=== PATIENT | female | born 1940 | race Caucasian/White ===

== ENCOUNTER → 2019-09-21 | Outpatient (CLI) | payer MEDICARE, OTHER ==
[~2019-09-21] MED LIST: ALDACTONE25 MG PO; ALLEGRA ALLERG180 MG PO; COREG6.25 MG PO; DYMISTA NASAL S23 GM NS; FLONASE 0.05%50 MCG NASAL; IBUPROFEN 200200 M1 PO; MUCINEX TA600 MG/TA2 PO; NASONEX17 GM NASAL; OMEPRAZOLE 20 M20 M1 PO; PRAVACHOL 20 MG20 M1 PO; PULMICORT FLE180 MCG IH; VITAMIN D3400 UNIT PO; XOPENEX HF1 UDINHALE IH
[2019-09-21 11:22] LABS: ALBUMIN 3.4 g/dL (3.4-5.0); DIRECT BILIRUBIN 0.1 mg/dL (<0.1-0.3); TOTAL BILIRUBIN 0.4 mg/dL (<0.1-1.0); TOTAL PROTEIN 6.6 g/dL (6.4-8.2)
== END ==
LOC: M.RAD 10:48
PROVIDERS: ATTEND Internal Medicine Cardiovascular Disease
DX: Z79.899 Other long term (current) drug therapy (principal)

== ENCOUNTER → 2020-11-09 | Outpatient (CLI) | payer MEDICARE, OTHER ==
[~2020-11-09] VITALS: Ht 152.4 cm; Wt 40.8 kg
[~2020-11-09] MED LIST changes: +AZELASTINE205.5 MCG/ NARES; +ELIQUIS5 MG PO; +ENTRESTO 49 MG1 EACH PO; +PACERONE100 MG PO
[2020-11-09 09:36] VITALS: BP 106/47
[2020-11-09 09:50] LABS: HEMATOCRIT 38.5 % (37.0-47.0); HEMOGLOBIN 12.8 gm/dL (12.0-15.0); MCH 28.4 pg (26.0-34.0); MCHC 33.2 g/dL (28.0-37.0); MCV 85.7 fL (80.0-100.0); RBC 4.49 mil/uL (4.20-5.00); RDW-CV 14.9 % (10.5-14.5); WBC 8.8 thou/uL (4.0-11.0)
[2020-11-09 09:57] LABS: ANION GAP 6 mmol/L (7-16); BUN 19 mg/dL (7-18); CALCIUM 8.8 mg/dL (8.5-10.1); CHLORIDE 106 mmol/L (98-107); CO2 29 mmol/L (21-32); CREATININE 0.9 mg/dL (0.6-1.3); GLUCOSE 91 mg/dL (70-99); POTASSIUM 4.1 mmol/L (3.5-5.1); SODIUM 141 mmol/L (136-145)
[2020-11-09 10:01] LABS: ALBUMIN 3.7 g/dL (3.4-5.0); ALKALINE PHOSPHATASE 55 U/L (46-116); CHOLESTEROL 170 mg/dL (<200); HDL CHOLESTEROL 67 mg/dL (>40); LDL CHOLESTEROL 93 mg/dL (<100); SERUM ASSESSMENT Clear; SGOT 28 U/L (15-37); SGPT 27 U/L (30-65); TC:HDL 2.5 Ratio (Not establshd); TOTAL BILIRUBIN 0.4 mg/dL (<0.1-1.0); TOTAL PROTEIN 6.2 g/dL (6.4-8.2); TRIGLYCERIDE 53 mg/dL (<150); VLDL 11 mg/dL (<40)
[2020-11-09 10:50] LABS: APTT 24.6 Seconds (25.0-31.3); PROTIME 10.3 Seconds (9.20-11.50)
[2020-11-09 12:36] VITALS: BP 127/67
[2020-11-09 12:50] VITALS: BP 113/56
--- NOTE | 2020-11-09 13:01 | EKG ---
[place] [address] ELECTROCARDIOGRAM REPORT Name: ARTURO KLEIN Room: [facility]#: [id number] Admission: 11/09/20 Attend Phys: Cj Hernandez, Discharge: Date of : 40 Date of Service: 11/09/20 1006 Report #: [id number] THIS REPORT FOR: //name// [facility] Test Date: 2020-11-09 Test Time: 10:06:03 Pat Name: ARTURO GARCIAES Department: Room: Gender: Basting Marker: [facility] : 1940 Requested By: Cj Hernandez Order Number: [id number] Juan MD: Tip Gonzalez Measurements Intervals [place] Rate: 60 P: 77 CO: 152 QRS: 210 QRSD: 144 T: 51 QT: 517 QTc: 517 Interpretive Statements Atrial-ventricular dual-paced rhythm No further analysis attempted due to paced rhythm No previous ECG available for comparison Electronically Signed On 11-09-2020 13:01:28 CDT by Tip Gonzalez [email or web address] <ELECTRONICALLY SIGNED> By: Tip Gonzalez MD, [facility] 11/09/20 1301 1006 1006 Tip Gonzalez MD, [facility] /EPI
[2020-11-09 13:03] VITALS: BP 116/57
--- NOTE | 2020-11-09 17:14 | CARD ---
[address] [address] CARDIAC CATH REPORT Name: ARTURO KLEIN Room: [facility]#: [id number] Admission: 11/09/20 Attend Phys: Cj Hernandez MD Discharge: Date of : 40 Report #: [id number] THIS REPORT FOR: cc: Physician not on staff Physician not on staff Cj Hernandez MD [facility] ~ APPROVED REPORT Study performed: 11/09/2020 10:55:19 Patient Details Patient Status: Out-Patient Room #: The patient is a 80 year-old female Event Personnel Cj Hernandez It Software Engineer, Milagro Morocho RN Monitor, Keny Schroeder ScrJerrod rodriguez Adam RTR Monitor, Milagro Morocho RN metal cleaner Performed Left Heart Cath w/or w/o Coronaries [id number] [facility] Hemostasis w/ Mynx Admission/Lab Medications/Medications given during procedure Midazolam (Versed) IV 1 mg, Fentanyl IV 25 mcg, Lidocaine Subcut 10 ml, Nitroglycerin IC 100 mcg Procedure Narrative The patient was brought electively to the Cardiac Catheterization Laboratory and was prepped and draped in a sterile manner. The right femoral was infiltrated with 2% Lidocaine subcutaneous anesthesia. IV conscious sedation was used throughout procedure with appropriate monitoring and was performed in the presence of a registered nurse who was an independent trained observer other than the physician performing the procedure. A 6Fr [place] sheath was inserted into the right femoral artery. Coronary angiography was performed using coronary diagnostic catheters. The right coronary system was accessed and visualized with a Diagnostic JR4 6Fr catheter. The left coronary system was accessed and visualized with a Diagnostic JL4 6Fr catheter. The left ventricle was accessed and visualized with a Diagnostic Pigtail 6Fr catheter. Left ventricular/Aortic Valve gradient assessed via catheter pullback. Left ventriculogram was performed in CZECH projection. Pre-dem[place] [address] CARDIAC CATH REPORT Name: ARTURO KLEIN Room: [facility]#: [id number] Admission: 11/09/20 Attend Phys: Cj Hernandez MD Discharge: Date of : 40 Report #: [id number] performed . Closure device was deployed with a 6 Fr Mynx. The patient tolerated the procedure well and there were no complications associated with the procedure. There was no hematoma. Intraoperative Conscious Sedation Sedation start time: 1152 Case end Time: 1208 Fentanyl 25 mcg Versed 1 mg Fluoro Time: 2.4 minutes Dose: DAP 93722 cGycm2 218.01 mGy Contrast Type and Amount: Omnipaque 100 ml Coronary Angiography The patient's coronary anatomy is right dominant. Diagnostic Cath Left Main The left main coronary artery is normal and bifurcates into a left anterior descending and circumflex coronary artery. LAD The left anterior descending artery has some mild calcification noted proximally with 20% narrowing proximally. Distally there is a 30% narrowing. Diagonal 1 The first diagonal branch has minimal plaquing without hemodynamically significant stenosis. Diagonal 2 The second diagonal branch has minimal plaquing proximally. Circumflex The circumflex coronary artery appears normal in its proximal mid and distal portion. OM1 A large and branched obtuse marginal branch appears normal. Right Coronary The right coronary artery has mild 10% plaquing proximally. The remainder the vessel is free of significant disease. R PDA The right PDA is normal. RPLV A moderate-sized branch right posterior lateral LV branch is normal. Left Ventriculography Left Ventriculography was not performed. Hemodynamics The aortic pressure is 103/68 mmHg with a mean of 80 mmHg. The left ventricular pressure is 117/9 mmHg with a mean of mmHg. The left ventricular end diastolic pressure is 4 [place] [address] CARDIAC CATH REPORT Name: ARTURO KLEIN Room: [facility]#: [id number] Admission: 11/09/20 Attend Phys: Cj Hernandez MD Discharge: Date of : 40 Report #: [id number] Conclusion 1. Mild nonocclusive coronary artery disease as outlined above. 2. Normal left ventricular end-diastolic pressure. Recommendations 1. Continue medical management and aggressive risk factor modification. <ELECTRONICALLY SIGNED> By: Cj Hernandez MD, [facility] 11/09/201713 13 171[facility] Falls[facility]aira Hernandez MD, [facility] /INF
== END | disposition home or self-care (01) ==
LOC: M.CL 09:17
PROVIDERS: ATTEND Internal Medicine Cardiovascular Disease
DX: I25.10 Atherosclerotic heart disease of native coronary artery without angina pectoris (principal); I11.0 Hypertensive heart disease with heart failure; I50.9 Heart failure, unspecified; E78.00 Pure hypercholesterolemia, unspecified; Z98.890 Other specified postprocedural states; Z79.899 Other long term (current) drug therapy; Z90.710 Acquired absence of both cervix and uterus; Z85.3 Personal history of malignant neoplasm of breast; Z79.01 Long term (current) use of anticoagulants; Z85.828 Personal history of other malignant neoplasm of skin; Z88.2 Allergy status to sulfonamides; Z91.040 Latex allergy status; Z88.0 Allergy status to penicillin; Z91.041 Radiographic dye allergy status; Z20.822 Contact with and (suspected) exposure to COVID-19

== ENCOUNTER 2021-02-26 15:39 | Observation (INO) | payer MEDICARE, OTHER ==
[~2021-02-26] VITALS: Ht 144.8 cm; Wt 40.8 kg
[2021-02-26 15:51] VITALS: BP 124/41
[2021-02-26 16:12] LABS: ABSOLUTE BASOPHILS 0.1 thou/uL (0.0-0.2); ABSOLUTE EOSINOPHILS 0.2 thou/uL (0.0-0.7); ABSOLUTE LYMPHOCYTES 2.5 thou/uL (0.8-5.3); ABSOLUTE MONOCYTES 0.6 thou/uL (0.0-1.2); ABSOLUTE NEUTROPHILS 5.6 thou/uL (1.6-8.1); BASOPHILS 1.1 %; EOSINOPHILS 1.8 %; HEMATOCRIT 39.7 % (37.0-47.0); HEMOGLOBIN 12.9 gm/dL (12.0-15.0); LYMPHOCYTES 27.8 %; MCH 26.5 pg (26.0-34.0); MCHC 32.4 g/dL (28.0-37.0); MCV 81.7 fL (80.0-100.0); MONOCYTES 7.2 %; MPV 8.1 fl. (7.2-11.1); NUCLEATED RBCS 0 /100WBC; PLATELET COUNT* 219 thou/uL (150-400); POLYS 62.1 %; RBC 4.86 mil/uL (4.20-5.00); RDW-CV 15.9 % (10.5-14.5)
[2021-02-26 16:25] LABS: CALCIUM 8.7 mg/dL (8.5-10.1); CREATININE 0.9 mg/dL (0.6-1.3); POTASSIUM 4.3 mmol/L (3.5-5.1)
[2021-02-26 16:42] LABS: ALBUMIN 3.6 g/dL (3.4-5.0); MAGNESIUM 2.1 mg/dL (1.8-2.4); TOTAL BILIRUBIN 0.3 mg/dL (<0.1-1.0); TOTAL PROTEIN 6.6 g/dL (6.4-8.2)
[2021-02-27 02:00] VITALS: BP 106/49
[2021-02-27 06:00] VITALS: BP 108/50
--- NOTE | 2021-02-27 08:39 | CON ---
[address] [address] CONSULTATION Name: LATOYAARTURO Julio Room: [address] M.R.#: [id number] Admission: 02/26/21 Attend Phys: Soo Patrick MD Discharge: Date of : 40 Report #: [id number] THIS REPORT FOR: cc: FAM - Family physician unknown FAM - Family physician unknown Cj Hernandez MD FAC ~ cc: Sabrina Hoff DATE OF CONSULTATION: 02/27/2021 CARDIOLOGY CONSULTATION INDICATION: Chest pain. HISTORY OF PRESENT ILLNESS: The patient is a very pleasant 80-year-old white female who is well known to myself. She has a history of nonischemic cardiomyopathy. EF on her most recent echocardiogram was 40%. 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 Catheterization in October of this year showed moderate nonocclusive disease. The patient reports having several episodes of chest pain that is midsternal in location with radiation to the left jaw. The pain was intense enough last Friday night that she took a nitroglycerin with prompt relief of the discomfort. The patient called the office to report this and was referred to the Emergency Room. In the Emergency Room, the patient is stable and not having any significant chest pain. Cardiac enzymes are unremarkable x 3 sets. NT-proBNP is within normal limits. She is not having any symptoms to suggest acute heart failure. She is without other complaint at this time. Of note, she was witnessed to unexpected at her local pool last week and still has some anxiety over this. PAST MEDICAL HISTORY: 1. Nonischemic cardiomyopathy. 2. Paroxysmal atrial fibrillation, maintaining sinus rhythm, on amiodarone. 3. Chronic amiodarone use. 4. Hypercholesterolemia. 5. Ascending aortic root aneurysm. 6. Chronic systolic congestive heart failure. 7. Left bundle branch block. 8. Status post biventricular ICD placement. HOME MEDICATIONS: Amiodarone 100 mg daily, Astelin nasal spray 1 spray each nostril 2 times daily, carvedilol 6.25 mg b.i.d., Prolia 60 mg injection as directed, Eliquis 5 mg p.o. b.i.d., Entresto 49/51 mg 1 tablet p.o. b.i.d., [place] [address] CONSULTATION Name: LATOYAARTURO [address] [id number] Admission: 02/26/21 Attend Phys: Soo Patrick MD Discharge: Date of : 40 Report #: [id number] fluticasone nasal spray 2 sprays each nostril daily, Nitrostat sublingual p.r.n., omeprazole 20 mg daily, pravastatin 20 mg at bedtime, Pulmicort inhaler daily, spironolactone 25 mg daily, vitamin D3 2000 units daily. SOCIAL HISTORY: The patient is a lifelong nonsmoker. She does not drink alcohol. FAMILY HISTORY: Noncontributory. ALLERGIES: LEVOFLOXACIN, IODINE, SULFA ANTIBIOTICS. REVIEW OF SYSTEMS: A 14-point review of systems positive only for the chest discomfort the patient has been experiencing. Otherwise, unremarkable. PHYSICAL EXAMINATION: VITAL SIGNS: Stable. Blood pressure is 106/62, pulse is 66. GENERAL: This is a thin, pleasant elderly female in no distress. Mood and affect appropriate. HEENT: Extraocular muscles intact. Mucous membranes are moist. NECK: Examination of the neck shows no jugular venous distention. CHEST: Reveals clear lung arreola. CARDIAC: Reveals a regular rhythm. I do not appreciate gallop or murmur. ABDOMEN: Examination of the abdomen reveals normal bowel sounds. The abdomen is soft, nontender. EXTREMITIES: Shows no edema. SKIN: Warm and dry. DIAGNOSTIC DATA: A 12-lead EKG shows AV sequential pacing. LABORATORY DATA: Labs are reviewed. CBC is unremarkable. Electrolytes are within normal limits. BUN 29, creatinine 0.9. High sensitivity troponins are 20, 18, and 19 sequentially. NT-proBNP was 328. Chest x-ray shows no acute cardiopulmonary abnormality. IMPRESSION AND RECOMMENDATIONS: 1. Chest pain with symptoms to suggest progressive/unstable angina. Recent catheterization showed nonocclusive disease. Enzymes are unremarkable. At this point in time, I would proceed with noninvasive stress testing. Further intervention will be pending the results of that study. 2. Nonischemic cardiomyopathy. Continue home regimen outlined above. The patient appears stable from a heart failure standpoint. 3. 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 Pacemaker functioning normally by remote and office interrogations. 4. Paroxysmal atrial fibrillation. The patient has had no recurrence of [address] [address] CONSULTATION Name: ARTURO KLEIN Room: [address] Jermaine M.R.#: [id number] Admission: 02/26/21 Attend Phys: Soo Patrick MD Discharge: Date of : 40 Report #: [id number] arrhythmia. She remains chronically anticoagulated without bleeding problems. 5. Chronic amiodarone therapy. The patient's liver functions and thyroid functions have been stable. Continue followup as outpatient. 6. Ascending aortic root aneurysm, stable by most recent CT scan. 7. Dyslipidemia. Repeat fasting lipid profile at this time. <ELECTRONICALLY SIGNED> By: Cj Hernandez MD, FACC 02/27/21 0839 0653 [id number] Hernandez MD, FACC /nt
--- NOTE | 2021-02-27 08:52 | EKG ---
[place] [address] ELECTROCARDIOGRAM REPORT Name: ARTURO KLEIN Room: [address]#: [id number] Admission: 02/26/21 Attend Phys: Soo Patrick, Discharge: Date of : 40 Date of Service: 02/26/21 1544 Report #: [id number] THIS REPORT FOR: //name// 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1940 Requested By: Jamie Butterfield Order Number: [id number] MD: Cj Hernandez Measurements Intervals [place] Rate: 64 P: 58 MS: 139 QRS: 228 QRSD: 137 T: 62 QT: 463 QTc: 478 Interpretive Statements Atrial-sensed ventricular-paced rhythm No further analysis attempted due to paced rhythm Compared to ECG 11/09/2020 10:06:03 AV dual-paced complex(es) or rhythm no longer present Electronically Signed On 02-27-2021 8:51:42 DIRECTOR WEIGHTS AND MEASURES by Cj Hernandez [email or web address] <ELECTRONICALLY SIGNED> By: Cj Hernandez MD, FACC 02/27/21 0851 1544 1544 Cj Hernandez MD, FAC /EPI
[2021-02-27 09:23] LABS: CHOLESTEROL 162 mg/dL (<200); HDL CHOLESTEROL 55 mg/dL (>40); LDL CHOLESTEROL 90 mg/dL (<100); TC:HDL 2.9 Ratio (Not establshd); TRIGLYCERIDE 87 mg/dL (<150); VLDL 17 mg/dL (<40)
[2021-02-27 09:25] LABS: SERUM ASSESSMENT Clear
--- NOTE | 2021-02-27 10:19 | CARDNUC ---
[place] [address] CARDIAC NUCLEAR IMAGING REPORT Name: ARTURO KLEIN Room: [address]helRR[address]hel#: [id number] Admission: 02/26/21 Attend Phys: Soo Patrick, Discharge: Date of : 40 Date of Service: 02/27/21 1019 Report #: [id number] THIS REPORT FOR: cc: FAM - Family physician unknown FAM - Family physician unknown Cj Hernandez MD [facility] ~ APPROVED REPORT Imaging Protocol: Stress Tc-99m/Rest Tc-99m 1 day Study performed: 02/27/2021 08:17:57 Indication: Chest pain Patient Location: ER Stress Nurse: Barbara Estrella RN Ht: 4 ft 9 in Wt: 90 lbs BSA: 1.28 m2 BMI: 19.47 Medical History Medical History: CAD non obstructive, Atrial Fibrillation, Cardiomyopathy, CHF, HTN, Hyperlipidemia, ICD Medications: amiodarone, carvedilol, eliquis, entresto, pravaststin, spironolactone Allergies: penicillin, sulfa, iodine, lates Cardiac Risk Factors: Age, FHX of CAD, HTN, Hyperlipidemia Previous Cardiac Procedures: ICD Exercise History: Sedentary Resting Data Rest SPECT myocardial perfusion imaging was performed in supine position 30 minutes following the intravenous injection of 11.9 mCi of Tc-99m Sestamibi. Time of rest injection: 07:50 The images were gated to evaluate regional wall motion and calculate left ventricular ejection fraction. Administration Route: IV Administration Site: Right Arm Pharmacologic Stress Pharmacologic stress test was performed by injecting Regadenoson 0.4 mg IV push over 10-15 seconds immediately followed by the intravenous injection of 34.8 mCi of Tc-99m Sestamibi. Time of stress injection: 08:50 Administration Route: [place] [address] CARDIAC NUCLEAR IMAGING REPORT Name: ARTURO KLEIN Room: [address]#: [id number] Admission: 02/26/21 Attend Phys: Soo Patrick, Discharge: Date of : 40 Date of Service: 02/27/21 1019 Report #: [id number] Administration Site: Right Arm Heart Rate at time of stress injection: 92 bpm. Gated Stress SPECT was performed 45 minutes after stress injection. The images were gated to evaluate regional wall motion and calculate left ventricular ejection fraction. Stress Test Details Stress Test: Pharmacologic stress testing performed using 0.4 mg of regadenoson per 5 mL given IV over 10 seconds. HR Max Heart Rate (APMHR): 140 bpm Resting HR: 61 bpm Target HR (85% APMHR): 119 bpm Max HR Achieved: 98 bpm % of APMHR: 70 Recovery HR: 75 bpm BP Resting BP: 120/82 mmHg Max BP: 147/82 mmHg Recovery BP: 130/85 mmHg ECG Resting ECG: A sensed V paced Stress ECG: A sensed V paced ST Change: None Arrhythmia: None Recovery ECG: A sensed V paced Recovery ST Change: None Recovery Arrhythmia: None Clinical Reason for Termination: Completed protocol The patient tolerated Lexiscan infusion without significant cardiac symptoms. Stress ECG Conclusion The baseline twelve-lead EKG shows atrial sensing with ventricular pacing. EKGs obtained during and post Lexiscan infusion show atrial sensing with ventricular pacing. Study Quality Study: Good Artifact: Mild Diaphragm[place] [address] CARDIAC NUCLEAR IMAGING REPORT Name: ARTURO KLEIN Room: [address]#: [id number] Admission: 02/26/21 Attend Phys: Soo Patrick, Discharge: Date of : 40 Date of Service: 02/27/21 1019 Report #: [id number] At rest, the left ventricular ejection fraction was 54%.. Post stress, the left ventricular ejection was 43%.. TID = 0.99. Perfusion Perfusion images obtained at rest show moderate photopenia of the basal to mid inferior wall that is much less pronounced on stress images consistent with diaphragmatic attenuation artifact. No other significant fixed or reversible defects are identified. Wall Motion Global LV systolic function mildly decreased without obvious focal wall motion abnormality. Nuclear Conclusion ECG Findings: non-diagnostic Clinical Findings: negative for ischemia Nuclear Findings: negative for ischemia Exercise Capacity: not assessed Left Ventricular Function: abnormal Perfusion images show no defect to suggest ischemia. Mild photopenia in the inferior wall is due to diaphragmatic attenuation artifact. Global LV systolic function mildly decreased with global hypokinesis. This is not a high risk study. <Conclusion> The baseline twelve-lead EKG shows atrial sensing with ventricular pacing. EKGs obtained during and post Lexiscan infusion show atrial sensing with ventricular pacing. <ELECTRONICALLY SIGNED> By: Cj Hernandez MD, FACC 02/27/21 1019 1019 1019 Cj Hernandez MD, FACC /INF
[2021-02-27 10:30] VITALS: BP 120/40
[2021-02-27 14:22] VITALS: BP 123/56
[2021-02-27 16:47] VITALS: BP 123/56
== END 2021-02-27 16:59 | disposition home or self-care (01) ==
LOC: M.ERS 15:39 → M.TBA-ER 18:52
PROVIDERS: Family Medicine; Internal Medicine Cardiovascular Disease; ADMIT Internal Medicine; ATTEND Internal Medicine
DX: I42.8 Other cardiomyopathies (principal); I20.9 Angina pectoris, unspecified; I50.22 Chronic systolic (congestive) heart failure; I11.0 Hypertensive heart disease with heart failure; I71.2 Thoracic aortic aneurysm, without rupture; I48.0 Paroxysmal atrial fibrillation; E78.5 Hyperlipidemia, unspecified; I49.5 Sick sinus syndrome; I44.7 Left bundle-branch block, unspecified; E78.00 Pure hypercholesterolemia, unspecified; Z20.822 Contact with and (suspected) exposure to COVID-19; Z95.810 Presence of automatic (implantable) cardiac defibrillator; Z88.0 Allergy status to penicillin; Z88.2 Allergy status to sulfonamides; Z85.828 Personal history of other malignant neoplasm of skin; Z91.041 Radiographic dye allergy status; Z91.040 Latex allergy status; Z79.899 Other long term (current) drug therapy; Z85.3 Personal history of malignant neoplasm of breast; Z92.21 Personal history of antineoplastic chemotherapy; Z92.3 Personal history of irradiation; Z98.891 History of uterine scar from previous surgery; Z90.710 Acquired absence of both cervix and uterus; Z98.890 Other specified postprocedural states